=== PATIENT | male | born 1955 | race Caucasian/White ===

== ENCOUNTER → 2021-01-22 14:30 | Outpatient (BNVA) | payer SELFPAY | PROVIDERS: Visit Provider Internal Medicine | DX: Z02.79 Encounter for issue of other medical certificate (principal) ==

== ENCOUNTER 2021-08-25 16:06 | Emergency (ER) | payer MEDICAID, SELFPAY ==
--- NOTE | 2021-08-25 | ECG_ITS ---
Test Reason : CARDIAC ARREST Blood Pressure : / mmHG Vent. Rate : 174 BPM Atrial Rate : 115 BPM P-R Int : 000 ms QRS Dur : 020 ms QT Int : 232 ms P-R-T Axes : 000 000 069 degrees QTc Int : 394 ms Poor data quality absent electrical activity Indeterminate axis Abnormal ECG When compared with ECG of 28-APR-2012 13:36, absent electrical activity Referred By: Shen Man Electronically Signed By:BRIONNA MORA MD
--- NOTE | 2021-08-25 16:32 | ED.CPR ---
HPI - CPR General Chief Complaint: Cardiac Arrest/CPR Stated Complaint: cardiac arrest Time Seen by Provider: 08/25/21 16:32 Source: family and EMS Mode of arrival: EMS History of Present Illness HPI narrative: Patient is 65 years old with history of hypertension noncompliant medication does not see PCP very of been sick for last few days patient's son is also sick not been tested for COVID just prior to arrival patient became unresponsive with bradycardic when EMS arrived CPR started cardiac monitoring showed coarse VFib given shocked 3 times epinephrine x5 she be continued and patient had in the ER patient was monitored no central or peripheral pulses palpable pupils fixed dilated CPR ongoing with no pulse palpable cardiac monitoring showing PEA Related Data Allergies Allergy/AdvReac Type Severity Reaction Status Date / Time No Known Allergies Allergy Unverified 06/14/20 14:38 Review of Systems Review of Systems: Yes Unobtainable due to mental condition [facility] Past Medical History Medical History (Updated 08/26/21 @ 00:01 by Background Dadamian) Hypertension Social History Social History Advance Directives: No Advance Directives Information Provided: No Physical Exam Vital Signs: Vital Signs: Last Vital Signs Pulse 184 H 08/25/21 16:50 Resp 8 L 08/25/21 16:50 Body Mass Index 23.5 Patient unconscious not responsive pupils fixed dilated mottled lower extremities no central or peripheral pulse palpable no cardiac activity no spontaneous respiration No signs of trauma MDM - Cardiac Arrest/CPR MDM Narrative Medical decision making narrative: Patient with acute respiratory and cardiac arrest of unknown etiology patient was sick for last few days will check for COVID. Patient received 11 shots of epinephrine amiodarone 300 mg multiple shocks intubated sodium bicarb calcium chloride was also given desulfurizer machine showed coarse VFib/PA without response to shock x 6. Bedside cardiac ultrasound showed no cardiac activity patient pronounced at 16:24 Case discussed with medical record coder awaiting for decision pending COVID-19 test 17:05 patient COVID-19 positive Case declined by medical record coder [place] [id number] Lab Data Attestation: I reviewed the patient's lab results. Labs: Lab Results 08/25/21 Range/Units 16:48 COVID-19 ([place]) Positive A (Negative) COVID-19 Clin Com See Note Procedures Intubation Time out performed: Yes sedative: none Laryngoscope: fiber optic video scope ET Tube Size: 7.5 ET Tube Uncuffed: Yes Tube Secured Depth (cm): 23 Tube Secured Location: teeth Tube Placement Confirmation: visualized tube passing through cords Patient Tolerated Procedure: well Intubation Complications: none Discharge Plan Discharge Clinical Impression: Cardiac arrest, COVID-19 Patient Disposition: Interventions: [facility] Nursing Doc/Post Mortem care Last Done: 08/25/21 21:32 Discharge Date/Time: 08/25/21 21:00 Date/Time: 08/25/21 16:24
[2021-08-25 16:50] VITALS: PULSE 184; RESP 8; BMI 23.5
[2021-08-25 16:58] LABS: COVID-19 Test Positive (Negative)
--- NOTE | 2021-08-25 17:21 | PC.NURSE ---
iglesia from [facility] reports declined d/t +covid case # [id number]
== END 2021-08-25 21:00 | disposition expired ==
PROVIDERS: Emergency Provider Internal Medicine
DX: I46.9 Cardiac arrest, cause unspecified (principal); U07.1 COVID-19; I10 Essential (primary) hypertension; Z91.14 Patient's other noncompliance with medication regimen
CPT/HCPCS: 31500; 36415; 87635; 93005; 96374; 96375; 99283; 99285; J0171; J0282